=== PATIENT | female | born 1985 | race Caucasian/White ===

== ENCOUNTER 2017-01-14 00:04 | Emergency (ER) | payer OTHER ==
[~2017-01-14] VITALS: Ht 165.1 cm; Wt 86.3 kg
[2017-01-14] MEDS ORDERED: SODIUM CHLORIDE 0.9% 1,000 ML IV ONE (06:30)
[2017-01-14] MEDS ORDERED: KETOROLAC 30MG/ML VIAL IV ONE (06:30)
[2017-01-14] MEDS ORDERED: KETOROLAC 60MG/2ML VIAL IM ONE (06:45)
[2017-01-14 08:29] VITALS: BP 117/75
== END 2017-01-14 08:31 | disposition home or self-care (01) ==
LOC: ER 00:05
DX: M54.40 Lumbago with sciatica, unspecified side (principal)
CPT/HCPCS: 96372; 99284; J1885; J7030; Z7610